=== PATIENT | female | born 1990 | race Caucasian/White ===

== ENCOUNTER 2016-08-24 15:26 | Observation (INO) ==
[2016-08-24 16:02] LABS: Bilirubin,Urine Negative (Negative); Blood,Urine Moderate (Negative); Clarity,Urine Cloudy (Clear); Color,Urine Yellow (Yellow); Glucose,Urine (UA) Normal (Normal); Ketones,Urine 80 mg/dL (Negative); Leukocyte Esterase,Urine Moderate (Negative); Nitrite,Urine Negative (Negative); Protein,Urine Trace mg/dL (Neg-Trace); Specific Gravity,Urine 1.025 (1.010-1.025); Urobilinogen,Urine Normal (Normal)
[2016-08-24 16:03] LABS: Bacteria,Urine Many per hpf (None-Few); Hyaline Casts,Urine Few per lpf (None-Few); Squamous Epithelial Cell,Urine Many per lpf (None-Few); WBC,Urine 50-100 per hpf (0-3)
--- NOTE | 2016-08-24 16:04 | OB/GYN Progress Note ---
Date of Encounter: 08/24/16 Time of Encounter: 16:03 - Assessment and Plan (1) Abdominal pain during Current Visit: Yes Status: Acute -Patient had RLQ and LLQ abdominal pain, which as decreased significantly since laying down and not ambulating. -Denies any vaginal discharge or blood, fever -Not concerned for placental abruption, rupture, intraamniotic infection, appendicitis. -Most likely benign back pain. -Denies nausea currently, no need for medication. Plan -Monitor for an hour-check for cervical change, [place], BP -Fluids, urine check -If patient continues to improve, may be discharged home. Qualifiers: Trimester: third trimester Qualified Code(s): O26.893 - Other specified related conditions, third trimester; R10.9 - Unspecified abdominal pain (2) 36 weeks gestation of Current Visit: Yes Status: Acute - (3) Back pain during Current Visit: Yes Status: Acute -Denies flank pain, urinary pain. No previous history of kidney stones. -Back pain improving with rest. -Most likely musculoskeletal. Plan -Tylenol for pain control. (4) Urinary tract infection during in third trimester, antepartum Current Visit: Yes Status: Acute -Urine shows many bacteria, moderate leuk esterase, etc. Concerning for UTI -Patient not having CVA tenderness on exam and back pain improved with rest. Not concern for pyelonephritis. -Blood in urine. No previous history of kidney stones. No dysuria. Doubt nephrolithiasis Plan -Outpatient Macrobid. Subjective - Subjective Principal diagnosis: Evaluation for Contractions Interval history: 26F, 36w4d, , GBS unknown presents with concerns that she may be having contractions. Symptoms started this morning. Patient woke up with low back back pain, described as a squeezing/tightness, dull ache that has gotten worse when she walks. In addition, admits to nausea, abdominal pain and pelvic cramping and frequent urination. Her symptoms are relieved when she lays down. Denies any fever, vomiting, CVA tenderness, painful urination, changes in her bowels, vaginal discharge or bleeding. Her previous , she was induced and states "so I really don't know what contractions feel like, so I got concerned and called". OB is Dr. Pleitez. Uncomplicated , states she is blood type O negative GBS sample taken yesterday. Antepartum ROS: movement normal, no loss of fluid, no vaginal bleeding Objective - Vital Signs Vital Signs: Intake and Output 08/24/16 08/24/16 08/24/16 07:59 15:59 23:59 Other: Weight 98.9 kg Patient Weight 08/24/16 23:59 Weight 98.9 kg - Exam FHR: auscultation normal Abdomen: Present: normal appearance, soft, gravid, tenderness (mild in RLQ) Uterus: Present: normal, firm
== END 2016-08-24 16:50 | disposition home or self-care (01) ==
LOC: 1NENULAB
PROVIDERS: ADMIT Student in an Organized Health Care Education/Training Program; ATTEND Student in an Organized Health Care Education/Training Program

== ENCOUNTER 2016-09-10 07:30 | Inpatient (IN) ==
[2016-09-10] MEDS ORDERED: Metoclopramide 10 MG/2 ML VIAL IVP ONE (08:11)
[2016-09-10] MEDS ORDERED: CeFAZolin Pre 2,000 MG/100 ML 2,000 MG/100 ML BAG IVPB ONE (08:11)
[2016-09-10] MEDS ORDERED: Ringers Solution, Lactated 1,000 ML IVC ONE (08:11)
[2016-09-10] MEDS ORDERED: Famotidine 20 MG/2 ML VIAL IVP ONE (08:11)
[2016-09-10] MEDS ORDERED: Ringers Solution, Lactated 1,000 ML IVC SCH (08:15)
[2016-09-10 08:59] LABS: Basophils % 0.2 %; Eosinophils # 0.1 K/mcL (0.0-0.6); Eosinophils % 0.6 %; Hematocrit 39.4 % (35.3-44.9); Hemoglobin 13.4 g/dL (11.5-15.4); Immature Granulocytes % 0.5 % (0-4); Lymphocytes # 1.8 K/mcL (0.6-4.6); Lymphocytes % 21.7 %; Mean Corpuscular Hemoglobin 29.9 pg (28.0-33.3); Mean Corpuscular Volume 87.9 fL (83.0-100.0); Mean Platelet Volume 10.2 fL (9.4-12.4); Monocytes # 0.4 K/mcL (0.0-1.3); Monocytes % 5.1 %; Neutrophils # 5.8 K/mcL (1.6-8.9); Platelet Count 333 K/mcL (140-400); Red Blood Count 4.48 M/mcL (3.82-4.97); Red Cell Distribution Width 14.1 % (11.5-14.5); Segmented Neutrophils % 71.9 %
[2016-09-10] MEDS ORDERED: *HR* FentaNYL (PF) 100 MCG/2 ML VIAL ONE (09:17)
[2016-09-10] MEDS ORDERED: *HR* Morphine Sulfate/PF 5 MG/10 ML AMPUL ONE (09:18)
--- NOTE | 2016-09-10 09:29 | OB/GYN History & Physical ---
Date of Encounter: 09/10/16 Time of Encounter: 09:27 Assessment and Plan (1) 39 weeks gestation of Current visit: Yes Status: Acute (2) Breech presentation Current visit: Yes Status: Acute Risks, benefits, and alternatives discussed with the patient and informed consent obtained. All questions answered. Qualifiers: Fetus number: single or unspecified fetus Qualified Code(s): O32.1XX0 - Maternal care for breech presentation, not applicable or unspecified History of Present Illness Chief complaint: scheduled c/s for breech HPI: Ms. Lin is a 26 year old female G2 P 1-0-0-1 at 39 0/7 weeks who presents for primary for breech. She was offered external cephalic version and has declined. She denies any labor symptoms and reports good movement. Past Med Surg Social Fam HX - Past Medical History Source: patient Medical history: no medical history Psychiatric history: no psych history - Past Surgical History Surgical History: no surgical history - Social History Smoking Status: Never smoker Smokeless Tobacco Status: No Alcohol use: none Drug use: none - Family History Mother Living Status: Still Living Hx Family Cardiac Disorders: Yes (HTN) Obstetrical History - Pregnancies : 2 Para: 1 Livin Medications and Allergies Vit Calc,Iron,Folic [ Vitamins] 1 each PO DAILY #30 tablet [Rx] Allergies No Known Allergies Allergy (Verified 01/17/16 11:10) Review of System OB All systems PM: reviewed and no additional remarkable complaints except as stated Exam - Constitutional Constitutional: well developed, well nourished, no acute distress - Neck Neck exam: full ROM - Lungs Respiratory exam: CTAB - Cardiovascular Cardiovascular exam: RRR - Abdomen Abdomen: Present: bowel sounds normal, gravid, non tender - Cervix Dilation: 4 Effacement: 80 Station: -3 - Comments Comments: bedside ultrasound to confirm breech presentation Results Result Diagrams: 09/10/16 08:14 All other labs normal.
--- NOTE | 2016-09-10 09:33 | Anesthesia Evaluation PreOp ---
Date of Encounter: 09/10/16 Time of Encounter: 09:00 - Past History Planned Operation: Cardiac History: Denies any Significant Hx Pulmonary History: Denies Any Significant HX SALES AND SERVICE OFFICER History: Denies Any Significant HX Other Medical History: Denies Any Significant HX Anesthesia History: No Prior Anesthetic Complications, Past Anesthesia (Epidural ) : Yes Alcohol Use: none Drug use: none Medications and Allergies Vit Calc,Iron,Folic [ Vitamins] 1 each PO DAILY #30 tablet [Rx] Allergies No Known Allergies Allergy (Verified 01/17/16 11:10) - Meds/Allergy Pre-op Review Medications Reviewed: Yes Allergies Reviewed: Yes Beta Blockers on Current Med List: No Anesthesia Results - Labs 09/10/16 08:14 Anesthesia Exam 134/91, 76, 98% Height: 1.65m Weight: 102kg NPO (# of Hours): >8hr - HEENT Pupil (Motor): Pupils equal Mallampati: II Teeth: Normal Oral Opening: Greater than 3 - SALES AND SERVICE OFFICER LOC: Oriented SALES AND SERVICE OFFICER Motor: Normal RUE, Normal LUE, Normal RLE, Normal LLE, Normal Face SALES AND SERVICE OFFICER Sensory: Normal: RUE, LUE, RLE, LLE, Face - Cardiac Rhythm: Regular Murmur: None JVD: No Carotid Bruit: No - Pulmonary Breath Sounds: bilateral Clear Respiratory Effort: Symmetrical Anesthesia Assess/Plan ASA Score: 2 Modified [place] Scale for Level of Consciousness: Cooperative, oriented, and tranquil Anesthetic Plan: Regional Autologous Blood: Yes Monitoring Plan: Standard Monitors Recovery Plan: PACU
[2016-09-10] MEDS ORDERED: Ondansetron 4 MG/2 ML VIAL ONE (10:12)
[2016-09-10] MEDS ORDERED: Naloxone 0.4 MG/ML INJ IVP PRN ×2 (10:18→13:31)
[2016-09-10] MEDS ORDERED: *HR* Promethazine 25 MG/ML VIAL IVP PRN (10:18)
[2016-09-10] MEDS ORDERED: *HR* HYDROmorphone (PF) 1 MG/ML SYRINGE IVP PRN ×2 (10:18→13:31)
[2016-09-10] MEDS ORDERED: Ondansetron 4 MG/2 ML VIAL IVP PRN ×2 (10:18→13:31)
[2016-09-10] MEDS ORDERED: *HR* Oxytocin 10 UNIT/ML VIAL IM ONE (10:36)
[2016-09-10] MEDS ORDERED: Ringers Solution, Lactated 1,000 ML ONE (10:36)
--- NOTE | 2016-09-10 10:51 | OB/GYN Procedure Note ---
Section - Date of procedure: 09/10/16 Preop diagnosis: breech Post-op diagnosis: same Procedure: primary low transverse Surgeon: Kacie Pleitez Estimated blood loss (cc): 500 Chief Executive Officer: Ricci Scott Anesthesiologist: Forest Moody Mixer Blender: Mando Rincon Anesthesia Type: Spinal section complications: none Disposition: L&D Recovery Room Specimens: Cord blood - Infant (s) Infant A Delivery Date: 09/10/16 Delivery Time: 10:16 Presentation: edd breech Route of delivery: other () Gender: Male Viability: Viable Pounds: 6 Ounces: 8 at 1 minute: 7 at 5 minutes: 9 Shoulder Dystocia: not encountered Specimens collected: cord blood Placenta: spontaneous Cord: 3 umbilical vessels - Narrative Narrative: Patient was taken to the operative suite and placed under spinal anesthetic. She was then prepped and draped in normal sterile fashion in the dorsal supine position. Timeout was then performed. Antibiotics were given at room time. SCDs are on and active. Pfannenstiel skin incision is then made and carried through to underlying layer of fascia with the Bovie. The fascia was then incised in the midline and incision extended laterally with the Padilla scissors. The fascia was tented up and dissected off the rectus muscles sharply. The rectus muscles were in the midline and the peritoneum was tented up and entered sharply with the Metzenbaum scissors. The peritoneal incision was then extended bluntly. The bladder blade was then inserted and the vesicouterine peritoneum was identified. A low transverse uterine incision was then made above the bladder reflection. The infant breech was brought to the incision and the was delivered using fundal pressure and breech maneuvers. There was no nuchal cord. Cord was clamped and cut. was handed to waiting nursery staff. Placenta delivered spontaneously complete and intact with a three-vessel cord. The uterus was cleared of all clots and debris using moist laparotomy sponge. The uterine incision was then closed using 0 Vicryl in a running locked fashion. A second layer of the same suture was used to obtain excellent hemostasis. The abdomen was then cleared of all clots and debris using copious irrigation. A piece of Interceed was then placed over the uterine incision and along the anterior uterine serosa. The fascial incision was then closed using 0 Vicryl in a running fashion. The skin was closed using 4-0 Vicryl in a subcuticular fashion. Steri-Strips and sterile dressing are then placed. Mother and infant taken to recovery in stable condition.
[2016-09-10] MEDS ORDERED: Measles/Mumps/Rubella Vacc 0.5 ML VIAL SQ ONE (13:31)
[2016-09-10] MEDS ORDERED: *HR* Morphine 2 MG/ML SYRINGE IVP PRN (13:31)
[2016-09-10] MEDS ORDERED: Ibuprofen 600 MG TABLET PO PRN (13:31)
[2016-09-10] MEDS ORDERED: Metoclopramide 10 MG/2 ML VIAL IVP PRN (13:31)
[2016-09-10] MEDS ORDERED: Sennosides 8.6 MG TABLET PO PRN (13:31)
[2016-09-10] MEDS ORDERED: Acetaminophen 325 MG TABLET PO PRN (13:31)
[2016-09-10] MEDS ORDERED: Oxytocin 20 units/ LR 1000 mL 20 UNIT/1,000 ML BAG IV SCH (13:31)
--- NOTE | 2016-09-10 13:35 | Anesthesia Evaluation Post Op ---
Date of Encounter: 09/10/16 Time of Encounter: 12:45 - Vital Signs Vital Signs: 131/82, 16, 98%, 84 - Lungs Lungs: Clear Ascult./Percussion - Airway Airway: Non-obstructed - Cardiovascular Regular Rate - Mental Status Mental Status: Alert & Oriented, Answers Appropriately - Pain Pain Scale: 3 Pain Scale used: Numeric (1 - 10) - Nausea Vomiting Nausea Vomiting: Not Present - Hydration Hydration: NPO - Discharge PostOp Status: Transfer Patient to floor Attestation: MOEx4. Meets discharge criteria for floor transfer.
[2016-09-10] MEDS: Oxytocin 20 units/ LR 1000 mL 20 UNIT/1,000 ML BAG IV SCH ×2 (13:44→22:14)
[2016-09-10] MEDS: Simethicone 80 MG TAB.CHEW PO PRN (23:25)
[2016-09-11 05:13] LABS: Basophils % 0.2 %; Eosinophils # 0.1 K/mcL (0.0-0.6); Eosinophils % 0.7 %; Hematocrit 35.2 % (35.3-44.9); Hemoglobin 11.8 g/dL (11.5-15.4); Immature Granulocytes % 0.6 % (0-4); Lymphocytes # 1.3 K/mcL (0.6-4.6); Lymphocytes % 12.4 %; Mean Corpuscular HGB Conc 33.5 g/dL (31.6-35.5); Mean Corpuscular Hemoglobin 29.8 pg (28.0-33.3); Mean Corpuscular Volume 88.9 fL (83.0-100.0); Mean Platelet Volume 9.9 fL (9.4-12.4); Monocytes # 0.6 K/mcL (0.0-1.3); Monocytes % 5.8 %; Neutrophils # 8.7 K/mcL (1.6-8.9); Platelet Count 248 K/mcL (140-400); Red Blood Count 3.96 M/mcL (3.82-4.97); Segmented Neutrophils % 80.3 %
[2016-09-11] MEDS: Simethicone 80 MG TAB.CHEW PO PRN ×2 (06:57→20:04)
[2016-09-11] MEDS: Prenatal Vit/FA 1 EACH TABLET PO SCH (08:06)
[2016-09-11] MEDS: *HR* OxyCODONE/APAP 5/325 TABLET PO PRN ×2 (09:09→20:10)
--- NOTE | 2016-09-11 11:32 | OB/GYN Progress Note ---
Date of Encounter: 09/11/16 Time of Encounter: 11:30 - Assessment and Plan (1) delivery delivered Current Visit: Yes Status: Acute Pt meeting POD#1 milestones. Await flatus. Ambulate today. Anticipate discharge home POD#2-3. Subjective - Subjective Patient reports: appetite normal, voiding normally, pain well controlled, ambulating normally : doing well Objective - Vital Signs Latest vital signs: Vital Signs Temp Pulse Resp BP Pulse Ox 09/11/16 08:20 98.1 F 93 18 118/78 95 09/11/16 04:14 98.2 F 87 16 114/76 96 09/10/16 20:55 98.0 F 99 16 113/75 97 09/10/16 16:15 98.3 F 94 16 129/84 96 09/10/16 15:15 98.2 F 84 16 137/85 97 09/10/16 14:15 98.2 F 81 16 130/81 97 09/10/16 13:45 97.4 F L 68 16 122/80 96 09/10/16 13:15 97.8 F 71 16 115/77 96 Intake and Output 09/10/16 09/11/16 09/11/16 23:59 07:59 15:59 Intake Total 1000 / 1000 600 / 600 Output Total 2600 / 2600 400 / 400 Balance 1000 / 1000 -2000 / -2000 -400 / -400 Intake: IV Fluids 1000 / 1000 Pitocin 20 unit In 1,000 1000 / 1000 ml @ 125 mls/hr IV .Q8H COUNT INCLUDES THE [facility] Rx#:[id number] Oral 600 / 600 Output: Urine 400 / 400 Catheter 2600 / 2600 - Exam Lungs: bilateral: normal Chest: Normal S1, Normal S2 Extremities: Present: normal Abdomen: Present: soft Incision: Present: dressed (dressing dry and intact) Uterus: Present: firm - Labs Labs: Laboratory Results - last 24 hr 09/11/16 04:56 WBC 10.8 RBC 3.96 Hgb 11.8 D Hct 35.2 L MCV 88.9 MCH 29.8 MCHC 33.5 RDW 14.0 Plt Count 248 MPV 9.9 Immature Gran % 0.6 Seg Neutrophils % 80.3 Lymphocytes % 12.4 Monocytes % 5.8 Eosinophils % 0.7 Basophils % 0.2 Neutrophils # 8.7 Lymphocytes # 1.3 Monocytes # 0.6 Eosinophils # 0.1 Basophils # 0.0
[2016-09-12] MEDS ORDERED: Ferrous Sulfate Oral Soln 300 MG/5 ML UDC PO SCH (09:00)
--- NOTE | 2016-09-12 10:11 | Discharge Summary ---
Date of Encounter: 09/12/16 Time of Encounter: 10:09 - Discharge Diagnosis (1) delivery delivered Priority: Primary Status: Acute Comments: Pt meeting all milestones. OAARS reviewed. - Discharge Medications Prescriptions: Ibuprofen [Motrin] 600 mg PO Q6HR PRN #60 tablet PRN Reason: Cramping Docusate [Colace] 100 mg PO BID #60 capsule OxyCODONE/APAP 5/325 [Percocet 5/325 MG] 1 each PO Q4H PRN #30 tablet PRN Reason: Moderate pain 4-6 Home Medications: Vit Calc,Iron,Folic [ Vitamins] 1 each PO DAILY #30 tablet [Rx] Acetaminophen [Tylenol] 325 mg PO Q6HR PRN #0 tablet 09/12/16 [Rx] Docusate [Colace] 100 mg PO BID #60 capsule 09/12/16 [Rx] Ibuprofen [Motrin] 600 mg PO Q6HR PRN #60 tablet 09/12/16 [Rx] OxyCODONE/APAP 5/325 [Percocet 5/325 MG] 1 each PO Q4H PRN #30 tablet 09/12/16 [ Rx] Allergies/Adverse Reactions: Allergies No Known Allergies Allergy (Verified 01/17/16 11:10) Data Procedures and tests throughout hospitalization: Laboratory Tests 09/10/16 09/11/16 08:14 04:56 WBC 8.1 10.8 RBC 4.48 3.96 Hgb 13.4 11.8 D Hct 39.4 35.2 L MCV 87.9 88.9 MCH 29.9 29.8 MCHC 34.0 33.5 RDW 14.1 14.0 Plt Count 333 248 MPV 10.2 9.9 Immature Gran % 0.5 0.6 Seg Neutrophils % 71.9 80.3 Lymphocytes % 21.7 12.4 Monocytes % 5.1 5.8 Eosinophils % 0.6 0.7 Basophils % 0.2 0.2 Neutrophils # 5.8 8.7 Lymphocytes # 1.8 1.3 Monocytes # 0.4 0.6 Eosinophils # 0.1 0.1 Basophils # 0.0 0.0 Date of admission: 09/10/16 07:37 Primary care physician: PCP NO Discharging clinician: Kavita Luna Anticipated date of discharge: 09/12/16 - Patient Status Disposition: Home, Self-Care Condition: Good Functional capacity at discharge: independent ambulation Overall status at discharge: patient is back to baseline - Discharge Instructions Follow Up With: NO,PCP [Primary Care Provider] - - Diet and Activity Diet: regular diet Hospital Course Reason for admission: section Delivery: section Episiotomy: none Laceration: none Other procedures: none complications: none Discharge diagnosis: IUP at term delivered [place] baby: male Hospital course: Section - Date of procedure: 09/10/16 Preop diagnosis: breech Post-op diagnosis: same Procedure: primary low transverse Surgeon: Kacie Pleitez Estimated blood loss (cc): 500 Foaming Machine Operator: Ricci Scott Anesthesiologist: Forest Moody Pipe Stem Repairer: Mando Rincon Anesthesia Type: Spinal section complications: none Disposition: L&D Recovery Room Specimens: Cord blood - (s) Infant A Infant Delivery Date: 09/10/16 Infant Delivery Time: 10:16 Presentation: edd breech Route of delivery: other () Gender: Male Viability: Viable Pounds: 6 Ounces: 8 at 1 minute: 7 at 5 minutes: 9 Shoulder Dystocia: not encountered Specimens collected: cord blood Placenta: spontaneous Cord: 3 umbilical vessels Time Attestation: Total time spent providing and/or coordinating discharge services: Time Spent: Less than 30 minutes - VTE Documentation of Mechanical Device: Intermittent pneumatic compression device Exam - Constitutional Vitals: Temp Pulse Resp BP Pulse Ox 97.7 F 108 16 139/89 96 09/11/16 19:45 09/11/16 19:45 09/11/16 21:40 09/11/16 19:45 09/11/16 19:45 General appearance IM: A&O X 3 - Respiratory Respiratory exam: Present: CTAB - Cardiovascular Cardiovascular exam IM: Present: RRR, +S1, +S2 - GI/Abdominal Incision: normal, intact - Uterine Tone: Firm - Extremities Exam Extremities exam IM: Present: normal inspection - Neurological Exam Neurological exam: normal gait, oriented X3
[2016-09-12] MEDS: Prenatal Vit/FA 1 EACH TABLET PO SCH (10:20)
[2016-09-12 11:27] VITALS: BP 119/82
== END 2016-09-12 12:20 | disposition home or self-care (01) | DRG 766 ==
LOC: 1NENULAB 07:37 → 1NENUOBS 13:30
PROVIDERS: ADMIT Obstetrics & Gynecology; ATTEND Obstetrics & Gynecology

== ENCOUNTER 2020-04-10 04:34 | Observation (INO) ==
[2020-04-10] MEDS ORDERED: Aspirin 81 MG TAB.CHEW PO ONE (05:12)
[2020-04-10] MEDS ORDERED: Isovue-370 500 ML BOTTLE IVP ONE (05:24)
[2020-04-10 05:45] LABS: Basophils % 0.5 %; Eosinophils # 0.2 K/mcL (0.0-0.6); Eosinophils % 1.8 %; Hematocrit 38.7 % (35.3-44.9); Hemoglobin 12.1 g/dL (11.5-15.4); Immature Granulocytes % 0.2 % (0-4); Lymphocytes # 2.3 K/mcL (0.6-4.6); Lymphocytes % 27.9 %; Mean Corpuscular HGB Conc 31.3 g/dL (31.6-35.5); Mean Corpuscular Hemoglobin 26.8 pg (28.0-33.3); Mean Corpuscular Volume 85.6 fL (83.0-100.0); Monocytes # 0.6 K/mcL (0.0-1.3); Monocytes % 7.5 %; Neutrophils # 5.1 K/mcL (1.6-8.9); Platelet Count 370 K/mcL (140-400); Red Blood Count 4.52 M/mcL (3.82-4.97); Red Cell Distribution Width 14.4 % (11.5-14.5); Segmented Neutrophils % 62.1 %; White Blood Count 8.1 K/mcL (4.3-11.1)
[2020-04-10 05:50] LABS: Prothrombin Time 10.8 Seconds (9.4-12.1)
[2020-04-10 06:00] LABS: Amphetamine Screen,Urine Negative ng/mL (Cutoff=1000); Barbiturate Screen,Urine Negative ng/mL (Cutoff=200); Benzodiazepines Screen,Urine Negative ng/mL (Cutoff=200); Cannabinoid Screen,Urine Negative ng/mL (Cutoff = 50); Cocaine Screen,Urine Negative ng/mL (Cutoff= 300); Opiate Screen,Urine Negative ng/mL (Cutoff=300); Phencyclidine Screen,Urine Negative ng/mL (Cutoff=25)
[2020-04-10 06:09] LABS: Troponin I < 0.03 ng/mL (< 0.04)
[2020-04-10 06:11] LABS: BUN/Creatinine Ratio 22 (6-26); Blood Urea Nitrogen 13 mg/dL (6-20); Calcium 8.6 mg/dL (8.6-10.3); Carbon Dioxide 24 mEq/L (23-29); Chloride 106 mEq/L (98-107); Glucose 92 mg/dL (70-105); Osmolality,Calculated 282 (280-300); Potassium 3.9 mEq/L (3.5-5.1); Sodium 136 mEq/L (136-145); eGFR For African Americans > 60 (> 60); eGFR For Non-African Americans > 60 (> 60)
[2020-04-10] MEDS ORDERED: Naloxone 0.4 MG/ML INJ IVP PRN (08:38)
[2020-04-10] MEDS ORDERED: Ondansetron 4 MG/2 ML VIAL IVP PRN (08:38)
[2020-04-10 09:21] LABS: Chol/HDL Ratio 3.5 (0-4.9)
[2020-04-10] MEDS ORDERED: Perflutren Lipid Microsphere 1.3 ML in 0.9 % Sodium Chloride 8.7 ML IVP PRN (10:24)
[2020-04-10 12:10] LABS: Estimated Average Glucose 91 mg/dl
[2020-04-10] MEDS ORDERED: Regadenoson 0.4 MG/5 ML SYRINGE IVP ONE (12:39)
[2020-04-10] MEDS ORDERED: *HR* Heparin 5,000 UNIT/ML VIAL SQ SCH (18:00)
[2020-04-10 18:13] VITALS: BP 108/72
[2020-04-10] MEDS ORDERED: Metoprolol XL (24 HR) Succ 25 MG TAB.ER.24H PO SCH (21:00)
== END 2020-04-10 19:59 | disposition home or self-care (01) ==
LOC: EMEROOARM 04:34 → CDU 04:34
PROVIDERS: ADMIT Internal Medicine; ATTEND Internal Medicine